=== PATIENT | male | born 1985 | race Caucasian/White ===

== ENCOUNTER → 2022-04-24 12:36 | Outpatient (BNVA) | payer SELFPAY | PROVIDERS: Visit Provider Physician Assistant | DX: S62.102D Fracture of unspecified carpal bone, left wrist, subsequent encounter for fracture with routine healing (principal); S63.601D Unspecified sprain of right thumb, subsequent encounter; V29.88XD Motorcycle rider (driver) (passenger) injured in other specified transport accidents, subsequent encounter; W55.32XD Struck by other hoof stock, subsequent encounter | CPT/HCPCS: 99203 ==

== ENCOUNTER 2022-10-31 03:55 | Emergency (ER) | payer OTHER, SELFPAY ==
--- NOTE | ~2022-10-31 | XR_ITS ---
EXAMINATION: XR FOOT, RIGHT CLINICAL INFORMATION: Pain COMPARISON: None available. TECHNIQUE: AP, lateral, and oblique views of the right foot. FINDINGS: The bones and soft tissues are normal. No fracture. Alignment is anatomic. Joint spaces are maintained. XR/XR foot RT min 3V IMPRESSION: Normal right foot.
[2022-10-31 04:03] VITALS: BP 135/80; PULSE 100; RESP 16; TEMP 37.1; O2SAT 95; BMI 29.9
[2022-10-31 04:09] VITALS: BP 138/76; PULSE 93; RESP 14; TEMP 36.7; O2SAT 96
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
--- NOTE | 2022-10-31 04:31 | MHC.EDTECH ---
This Pct was asked by Doctor Delatorre to kelly tape patients right great toe to the second digit,gauze was placed in between for comfort.Patient tolerated well,RN at bedside and is aware.
--- NOTE | 2022-10-31 05:22 | PC.NURSE ---
Pt aox4 resting at the bedside in no apparent distress. Discharge instructions reviewed with pt. Pt verbalizes understanding. Ambulates independently with a steady gait at discharge.
== END 2022-10-31 05:24 | disposition home or self-care (01) ==
PROVIDERS: Emergency Provider Emergency Medicine Emergency Medical Services
DX: S92.424A Nondisplaced fracture of distal phalanx of right great toe, initial encounter for closed fracture (principal); V48.3XXA Unspecified car occupant injured in noncollision transport accident in nontraffic accident, initial encounter; Y93.89 Activity, other specified; Y92.414 Local residential or business street as the place of occurrence of the external cause; Y99.0 Civilian activity done for income or pay
CPT/HCPCS: 73630; 99283

== ENCOUNTER → 2022-11-01 09:15 | Outpatient (BNVA) | payer OTHER, SELFPAY | PROVIDERS: Visit Provider Physician Assistant | DX: S92.424A Nondisplaced fracture of distal phalanx of right great toe, initial encounter for closed fracture (principal); X58.XXXA Exposure to other specified factors, initial encounter | CPT/HCPCS: 99204 ==

== ENCOUNTER → 2022-11-08 09:09 | Outpatient (BNVA) | payer OTHER, SELFPAY | PROVIDERS: Visit Provider Physician Assistant | DX: S92.424A Nondisplaced fracture of distal phalanx of right great toe, initial encounter for closed fracture (principal); X58.XXXA Exposure to other specified factors, initial encounter | CPT/HCPCS: 99213 ==

== ENCOUNTER → 2022-11-21 09:00 | Outpatient (BNVA) | payer OTHER, SELFPAY | PROVIDERS: Visit Provider Physician Assistant | DX: S92.424D Nondisplaced fracture of distal phalanx of right great toe, subsequent encounter for fracture with routine healing (principal); X58.XXXD Exposure to other specified factors, subsequent encounter | CPT/HCPCS: 99213 ==